=== PATIENT | male | born 1970 ===

== ENCOUNTER 2017-02-22 23:43 | Emergency (ER) | payer OTHER ==
[2017-02-22 23:47] VITALS: BP 136/98
[2017-02-23] MEDS ORDERED: TYLENOL ONE (00:19)
[2017-02-23] MEDS ORDERED: TYLENOL PO ONE (00:37)
--- NOTE | 2017-02-23 01:42 | XRay Report ---
FINAL REPORT PROCEDURE: XR HAND 2V LT TECHNIQUE: Left hand radiographs, AP, lateral, and oblique views. CPT 22306 HISTORY: left hand COMPARISON: No prior studies are available for comparison. FINDINGS: Fracture (s) and/or Dislocation(s): None . Alignment: Normal . Joint space(s): Normal . Soft tissues: Normal . Bone mineralization: Normal . Foreign bodies: None . IMPRESSION: Normal Examination .
--- NOTE | 2017-02-23 01:44 | XRay Report ---
FINAL REPORT PROCEDURE: XR FOREARM 1V LT TECHNIQUE: LEFT forearm radiographs, AP and lateral views. CPT 42047 HISTORY: pain left forearm COMPARISON: No prior studies are available for comparison. FINDINGS: Fracture (s) and/or Dislocation(s): None . Joint space(s): Normal . Soft tissues: Normal . Bone mineralization: Normal . Foreign bodies: None . IMPRESSION: Normal Examination
--- NOTE | 2017-02-23 01:46 | XRay Report ---
FINAL REPORT PROCEDURE: XR ELBOW 2V LT TECHNIQUE: LEFT elbow radiographs, including AP and lateral views. HISTORY: left elbow COMPARISON: No prior studies are available for comparison. FINDINGS: Fracture (s) and/or Dislocation(s): None . Alignment: Normal . Joint space(s): Normal . Soft tissues: Normal . Bone mineralization: Normal . Foreign bodies: None . IMPRESSION: Normal Examination
--- NOTE | 2017-02-23 01:47 | XRay Report ---
FINAL REPORT PROCEDURE: XR SHOULDER 2+V LT TECHNIQUE: RIGHT shoulder radiographs including AP views in internal and external rotation. CPT 25183 HISTORY: pain left shoulder COMPARISON: No prior studies are available for comparison. FINDINGS: Fracture (s) and/or Dislocation(s): None . Joint space(s): Normal . Soft tissues: Normal . Bone mineralization: Normal . Foreign bodies: None . IMPRESSION: Normal Examination
[2017-02-23] MEDS ORDERED: ZOFRAN ONE (07:13)
[2017-02-23] MEDS ORDERED: NACL 0.9% 1000 ML 1,000 ML ONE (07:14)
[2017-02-23] MEDS ORDERED: MORPHINE ONE (07:14)
[2017-02-23] MEDS ORDERED: TORADOL IM ONE (07:54)
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
== END 2017-02-23 08:21 | disposition home or self-care (01) ==
LOC: ED 23:43
DX: M79.1 Myalgia (principal); J45.909 Unspecified asthma, uncomplicated; F17.200 Nicotine dependence, unspecified, uncomplicated; V43.52XA Car driver injured in collision with other type car in traffic accident, initial encounter; Y93.89 Activity, other specified; Y99.8 Other external cause status; Y92.89 Other specified places as the place of occurrence of the external cause
CPT/HCPCS: 73030; 73070; 73090; 73120; 96372; 99283; J1885; J2270; J2405; J7030